=== PATIENT | male | born 1980 | race African-American/Black ===

== ENCOUNTER 2017-05-19 19:23 | Emergency (ER) | payer OTHER ==
[2017-05-19] MEDS ORDERED: Clindamycin 150 MG CAP ONE (20:25)
[2017-05-19] MEDS ORDERED: Ibuprofen 800 MG TAB ONE (20:25)
--- NOTE | 2017-05-19 21:48 | RAD ---
THREE VIEWS OF THE LEFT LONG FINGER 05/19/17 INDICATION: Long finger pain. COMPARISON: None. FINDINGS: The left long finger is held in hyperextension at the DIP joint. No acute fracture or subluxation is evident. No radiopaque foreign body is evident. IMPRESSION: No acute osseous abnormality. POS: [facility]
== END 2017-05-19 20:48 ==
LOC: MADERS 19:23
DX: S63.633A Sprain of interphalangeal joint of left middle finger, initial encounter (principal); J02.9 Acute pharyngitis, unspecified; Z87.891 Personal history of nicotine dependence; W26.8XXA Contact with other sharp object(s), not elsewhere classified, initial encounter